=== PATIENT | female | born 1950 | race Two or more races ===

== ENCOUNTER 2016-10-26 20:20 | Emergency (ER) | payer OTHER, MEDICAID ==
[~2016-10-26] VITALS: Ht 160 cm; Wt 66.7 kg
[~2016-10-26 20:20] MED LIST: HYDR-971 PO; INSU100C4 SQ; INSU100V13 SQ; METF-620 PO; PENI500T PO
[2016-10-26] MEDS ORDERED: MORPHINE SULFATE 10 MG/ML VIAL. IV ONE (20:45)
[2016-10-26] MEDS ORDERED: diazePAM 5 MG TABLET PO ONE (20:45)
[2016-10-26] MEDS ORDERED: KETOROLAC TROMETHAMINE 30 MG/ML INJ. IV ONE (20:45)
--- NOTE | 2016-10-26 20:59 | PHYS DOC ---
Past Medical History Past Medical History: Diabetes-Type II, High Cholesterol, Hypertension, Hypothyroid Past Surgical History: No Surgical History, Knee Replacement Alcohol Use: None Drug Use: None Adult General Chief Complaint Chief Complaint: LOWER EXT PAIN HPI HPI Patient is a 66 year old female presenting to the emergency department for evaluation of left hip growing knee and leg pain. Patient just arrived here from [place] and was caring her luggage and had some leg pain and then however she was feeling better. They then went to the store and after returning home from shopping she started complaining of severe pain primarily in her left knee anteriorly however she says it shoots back up into her left hip and left inguinal area. She says that she is not having any abdominal pain nausea vomiting back pain fevers chills. There is no obvious deformity or swelling. She says the pain is sharp and shoots down the front of her leg. Review of Systems Review of Systems Constitutional: Denies fever or chills [] Eyes: Denies change in visual acuity, redness, or eye pain [] HENT: Denies nasal congestion or sore throat [] Respiratory: Denies cough or shortness of breath [] Cardiovascular: No additional information not addressed in HPI [] GI: Denies abdominal pain, nausea, vomiting, bloody stools or diarrhea [] : Denies dysuria or hematuria [] Musculoskeletal: Denies back pain. + joint pain [] Integument: Denies rash or skin lesions [] Neurologic: Denies headache, focal weakness or sensory changes [] Current Medications Current Medications Current Medications Medications (Trade) Dose Ordered Sig/Dash Start Time Stop Time Status Last Admin Dose Admin Diazepam (Valium) 5 mg 1X ONCE 10/26/16 20:45 10/26/16 20:46 DC 10/26/16 20:48 5 MG Ketorolac Tromethamine (Toradol) 30 mg 1X ONCE 10/26/16 20:45 10/26/16 20:46 DC 10/26/16 20:54 30 MG Morphine Sulfate 5 mg 1X ONCE 10/26/16 20:45 10/26/16 20:46 DC 10/26/16 20:54 5 MG Sodium Chloride 1,000 ml @ 1,000 mls/hr 1X ONCE 10/26/16 21:45 10/26/16 22:44 Allergies Allergies Allergies Coded Allergies Type Severity Reaction Last Updated Verified No Known Drug Allergies 04/02/15 No Physical Exam Physical Exam Constitutional: Well developed, well nourished, no acute distress, non-toxic appearance. [] HENT: Normocephalic, atraumatic, bilateral external ears normal, oropharynx moist, no oral exudates, nose normal. [] Eyes: PERRLA, EOMI, conjunctiva normal, no discharge. [] Neck: Normal range of motion, no tenderness, supple, no stridor. [] Cardiovascular:Heart rate regular rhythm, no murmur [] Lungs & Thorax: Bilateral breath sounds clear to auscultation [] Abdomen: Bowel sounds normal, soft, no tenderness, no masses, no pulsatile masses. Left inguinal region with some pain over the inguinal ligament but there is no abdominal tenderness. Skin: Warm, dry, no erythema, no rash. [] Back: No tenderness, no CVA tenderness. [] Extremities: Just even slight palpation of her left femur and hip knee on the skin causes her to have extreme pain. There is no subcutaneous air on examination. She is able to flex her hip and knee but she says it is painful to do so. She has no swelling or deformity noted and there is a strong 2+ dorsalis pedis pulse. Neurologic: Alert and oriented X 3, normal motor function, normal sensory function, no focal deficits noted. [] Current Patient Data Vital Signs Vital Signs Date Time Temp Pulse Resp B/P (MAP) Pulse Ox O2 Delivery O2 Flow Rate FiO2 10/26/16 20:54 16 98 Room Air 10/26/16 20:30 98.3 89 167/79 (108) 98.3 Lab Values Laboratory Tests Test 10/26/16 20:55 White Blood Count 9.9 x10^3/uL (4.0-11.0) Red Blood Count 3.87 x10^6/uL (3.50-5.40) Hemoglobin 10.9 g/dL (12.0-15.5) L Hematocrit 31.7 % (36.0-47.0) L Mean Corpuscular Volume 82 fL (79-100) Mean Corpuscular Hemoglobin 28 pg (25-35) Mean Corpuscular Hemoglobin Concent 35 g/dL (31-37) Red Cell Distribution Width 13.5 % (11.5-14.5) Platelet Count 333 x10^3/uL (140-400) Neutrophils (%) (Auto) 56 % (31-73) Lymphocytes (%) (Auto) 34 % (24-48) Monocytes (%) (Auto) 6 % (0-9) Eosinophils (%) (Auto) 3 % (0-3) Basophils (%) (Auto) 1 % (0-3) Neutrophils # (Auto) 5.5 x10^3uL (1.8-7.7) Lymphocytes # (Auto) 3.3 x10^3/uL (1.0-4.8) Monocytes # (Auto) 0.6 x10^3/uL (0.0-1.1) Eosinophils # (Auto) 0.3 x10^3/uL (0.0-0.7) Basophils # (Auto) 0.1 x10^3/uL (0.0-0.2) Sodium Level 144 mmol/L (136-145) Potassium Level 3.7 mmol/L (3.5-5.1) Chloride Level 106 mmol/L (98-107) Carbon Dioxide Level 30 mmol/L (21-32) Anion Gap 8 (6-14) Blood Urea Nitrogen 21 mg/dL (7-20) H Creatinine 1.6 mg/dL (0.6-1.0) H Estimated GFR (Cockcroft-Gault) 32.2 BUN/Creatinine Ratio 13 (6-20) Glucose Level 164 mg/dL (70-99) H Calcium Level 9.1 mg/dL (8.5-10.1) Total Bilirubin 0.2 mg/dL (0.2-1.0) Aspartate Amino Transferase (AST) 28 U/L (15-37) Alanine Aminotransferase (ALT) 45 U/L (14-59) Alkaline Phosphatase 85 U/L (46-116) Creatine Kinase 222 U/L (26-192) H Total Protein 7.7 g/dL (6.4-8.2) Albumin 4.0 g/dL (3.4-5.0) Albumin/Globulin Ratio 1.1 (1.0-1.7) Laboratory Tests 10/26/16 20:55 Laboratory Tests 10/26/16 20:55 EKG EKG [] Radiology/Procedures Radiology/Procedures Left hip and knee x-rays show diffuse degenerative changes. Back x-ray show that her L1-L2 disc space is quite narrowed but there is no acute fractures. I do suspect that this is more of a nerve involvement given that she is having shooting pain down her leg. Her vascular status is normal and there is no red flag signs or symptoms necessitating emergent MRI. Her pain was controlled after treatment in the emergency department. She does have slight dehydration and elevated CK so she will get a liter of normal saline. Patient will be discharged with instructions to take low-dose NSAIDs for the next 5 days and will prescribe Barling for breakthrough pain and have her follow with her primary care provider in the next 2-3 days and have her come back to the ER sooner with any worsening pain weakness incontinence or other general concerns. Course & Med Decision Making Course & Med Decision Making The only explanation for the pain that makes sense to me as if this is a lumbar radiculopathy as there is no known injury. She has normal sensation and vascular exam. We'll check labs x-rays and treat symptoms and then reassess. Francineon Disclaimer Flor Disclaimer This electronic medical record was generated, in whole or in part, using a voice recognition dictation system. Departure Departure Impression: Primary Impression: Lumbar radiculopathy Additional Impression: Renal insufficiency Disposition: 01 HOME, SELF-CARE Condition: GOOD Referrals: UNKNOWN PCP NAME (PCP) Patient Instructions: Lumbosacral Radiculopathy Additional Instructions: TAKE 200MG OF IBUPROFEN 2-3 TIMES DAILY AND THE NORCO FOR BREAKTHROUGH PAIN. FOLLOW WITH A PCP TO ENSURE IMPROVEMENT AND COME BACK FOR WORSENING PAIN, WEAKNESS, INCONTINENCE, OR OTHER GENERAL CONCERNS. THANK YOU! Scripts Hydrocodone/Apap 5-325 (NORCO 5-325 TABLET) 1 Each Tablet 1 TAB PO PRN Q6HRS Y for PAIN, #20 TAB 0 Refills Prov: AZEEM CHAUHAN DO 10/26/16 Problem Qualifiers AZEEM CHAUHAN DO Oct 26, 2016 20:59
[2016-10-26 21:08] LABS: BASO # 0.1 x10^3/uL (0.0-0.2); BASO % 1 % (0-3); EOS % 3 % (0-3); HEMATOCRIT 31.7 % (36.0-47.0); HEMOGLOBIN 10.9 g/dL (12.0-15.5); LYMPH # 3.3 x10^3/uL (1.0-4.8); LYMPH % 34 % (24-48); MEAN CORPUSCULAR HEMOGLOBIN 28 pg (25-35); MEAN CORPUSCULAR HGB CONC 35 g/dL (31-37); MEAN CORPUSCULAR VOLUME 82 fL (79-100); MONO % 6 % (0-9); NEUT % 56 % (31-73); PLATELET COUNT 333 x10^3/uL (140-400); RED BLOOD COUNT 3.87 x10^6/uL (3.50-5.40); RED CELL DISTRIBUTION WIDTH 13.5 % (11.5-14.5); WHITE BLOOD COUNT 9.9 x10^3/uL (4.0-11.0)
[2016-10-26 21:21] LABS: CALCIUM 9.1 mg/dL (8.5-10.1); CREATININE 1.6 mg/dL (0.6-1.0); GFR 32.2; POTASSIUM 3.7 mmol/L (3.5-5.1)
[2016-10-26 21:26] LABS: ALBUMIN/GLOBULIN RATIO 1.1 (1.0-1.7); TOTAL BILIRUBIN 0.2 mg/dL (0.2-1.0); TOTAL PROTEIN 7.7 g/dL (6.4-8.2)
[2016-10-26] MEDS ORDERED: IV NORMAL SALINE 1000ML BAG 1,000 ML IV ONE (21:45)
[2016-10-26] MEDS ORDERED: HYDR-971 PO (21:46)
[2016-10-26 22:33] VITALS: BP 116/60
--- NOTE | 2016-10-27 07:32 | RAD ---
Lumbar spine, left hip, and left knee radiographs 10/26/2016 at 2122 hours Indication: Lower back pain radiating to the left leg Comparison: Left knee radiographs 04/11/2009 Technique: 3 views of the lumbar spine, 2 views of the left hip, and 3 views of the left knee are provided. Findings: Lumbar spine: Alignment of the lumbar spine is normal. There are 5 nonrib-bearing lumbar type vertebral bodies. Anterior marginal osteophytosis is present at all levels of the lumbar spine sparing L5-S1. There is moderate facet arthropathy at L3-L4 and severe facet arthropathy at L4-L5 and L5-S1. There is height loss involving T12, which is inadequately assessed on this radiograph. Cholecystectomy clips are identified in the right upper quadrant. Left greater than right sacroiliac joint osteoarthrosis. Left hip: There is mild joint space narrowing. Osteophytosis is identified along the acetabular and femoral components of the femoral acetabular joint. There is no acute fracture or dislocation. Mild osteophytosis at the pubic symphysis. Faint radiopaque densities along the subcutaneous soft tissues of the left hip may represent either areas of prior injection granuloma or findings external to the patient. Left knee: There is no knee joint effusion. There is a lateral femorotibial joint space narrowing with mild osteophytosis. Calcification is noted within the menisci bilaterally compatible with crystal deposition (calcium pyrophosphate disease). There is patellofemoral narrowing and at the site of the along the insertion of the quadriceps tendon. No acute fracture or dislocation. Impression: 1. Moderate degenerative disc disease of the lumbar spine without evidence for acute fracture or malalignment. 2. Mild height loss of T12, likely chronic. 3. Moderate osteoarthrosis of the left hip joint. 4. 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
== END 2016-10-26 22:41 | disposition home or self-care (01) ==
LOC: ER 20:20
DX: M54.16 Radiculopathy, lumbar region (principal); N28.9 Disorder of kidney and ureter, unspecified; E86.0 Dehydration; R74.8 Abnormal levels of other serum enzymes; E11.9 Type 2 diabetes mellitus without complications; E78.00 Pure hypercholesterolemia, unspecified; I10 Essential (primary) hypertension; E03.9 Hypothyroidism, unspecified; Z96.659 Presence of unspecified artificial knee joint
CPT/HCPCS: 36415; 72100; 73502; 73562; 80053; 82550; 85027; 96361; 96374; 96375; 99285; C1887; J1885; J2270; J7030